=== PATIENT | female | born 1985 | race Caucasian/White ===

== ENCOUNTER 2021-07-13 10:33 | Emergency (ER) | payer MEDICARE, MEDICAID, SELFPAY ==
--- NOTE | ~2021-07-13 | US_ITS ---
EXAMINATION: US ABDOMEN LIMITED CLINICAL INFORMATION: Right upper quadrant pain. COMPARISON: None TECHNIQUE: Real-time imaging of the right upper quadrant abdominal viscera. FINDINGS: PANCREAS: Visualized portions are unremarkable. The tail obscured by overlying bowel gas. No peripancreatic inflammatory change. LIVER: Normal. The liver is normal in size. The liver contour is normal. Parenchymal echogenicity is normal. No focal hepatic lesion. There is no intrahepatic biliary duct dilatation seen. GALLBLADDER: There is tenderness to palpation overlying the gallbladder however no calculi, sludge, polyps are identified in gallbladder wall measures 3 mm in diameter. No fluid within the gallbladder wall. No pericholecystic fluid is seen. COMMON BILE DUCT: Normal in caliber measuring 0.3 cm in diameter. RIGHT KIDNEY: Normal. No hydronephrosis. No renal calculi or focal parenchymal lesions. The kidney measures 11.5 cm in maximum dimension. FREE FLUID: None. US/US abdomen limited IMPRESSION: No evidence of acute pancreatitis or acute cholecystitis.
--- NOTE | ~2021-07-13 | CT_ITS ---
EXAMINATION: CT ABDOMEN AND PELVIS WITHOUT CONTRAST CLINICAL INFORMATION: Flank pain. Rule out kidney stone. COMPARISON: Previous abdominal ultrasound from earlier the same day TECHNIQUE: Multidetector volumetric imaging was performed from the superior aspect of the liver through the pubic symphysis. Sagittal and coronal reformatted images were obtained on the technologist's workstation. This CT examination was performed using dose optimization techniques as appropriate, variously including the following: *Automated exposure control *Adjustment of mA and/or kV according to patient size (this includes techniques or standardized protocols for targeted exams where dose is matched to indication/reason for exam; i.e. extremities or head) *Use of iterative reconstruction technique DLP: 878 mGy-cm FINDINGS: LUNG BASES: The visualized lung bases are unremarkable. LIVER, GALLBLADDER, AND BILIARY TREE: The liver is normal in size, shape, and attenuation. No focal hepatic lesion or biliary ductal dilatation is present. The gallbladder is unremarkable with no evidence of radiopaque gallstones, gallbladder wall thickening, or obvious pericholecystic inflammatory changes. PANCREAS: Unremarkable. SPLEEN: Unremarkable. ADRENAL GLANDS: Unremarkable. KIDNEYS AND URETERS: The kidneys are normal in size, shape, and attenuation. No hydronephrosis, hydroureter, or calculi seen. No perinephric stranding. BLADDER: Not optimally distended and not well evaluated. GASTROINTESTINAL TRACT: The small and large bowel are unremarkable. The appendix is unremarkable. ABDOMINAL WALL: There is a small umbilical hernia containing fat and fluid. LYMPH NODES: Normal. VASCULAR: Unremarkable. PELVIC VISCERA: Unremarkable. OSSEOUS STRUCTURES: There are postsurgical changes at the L4-L5 and L5-S1 disc space levels. CT/CT abdomen pelvis wo con IMPRESSION: Normal-appearing kidneys. No stone seen. Small umbilical hernia containing fat and fluid. Postsurgical changes to the lower lumbar spine. Fleischner guidelines were followed.
[2021-07-13 10:49] VITALS: BP 148/95; PULSE 84; RESP 18; TEMP 37.2; O2SAT 96; BMI 38.2
[2021-07-13 11:12] LABS: MANUAL DIFF FLAG NO
[2021-07-13 11:14] LABS: Basophils Percent Auto 0.1 % (0-2); Eosinophils Absolute Auto 0.1 X10*3/uL (0.0-0.4); Eosinophils Percent Auto 0.9 % (0-4); Hematocrit 41.7 % (37.0-47.0); Hemoglobin 14.3 g/dl (12.0-16.0); Imm Gran Abs Auto 0.02 X10*3/uL (0.00-0.03); Imm Gran Pct Auto 0.3 % (0.0-0.4); Lymphocytes Absolute Auto 0.6 X10*3/uL (1.2-4.9); Lymphocytes Percent Auto 9.5 % (20-40); Mean Corpuscular HGB Conc 34.3 g/dl (31.0-35.0); Mean Corpuscular Hemoglobin 30.9 pg (27.0-33.0); Mean Corpuscular Volume 90.1 fL (80.0-98.0); Mean Platelet Volume 9.4 fL (9.4-12.3); Monocytes Absolute Auto 0.8 X10*3/uL (0.1-1.2); Monocytes Percent Auto 11.9 % (2-11); Neutrophils Absolute Auto 5.2 x10*3/uL (2.0-8.3); Neutrophils Percent Auto 77.3 % (45-73); Platelet Count 187 X10*3/uL (160-400); Red Blood Count 4.63 X10*6/uL (4.20-5.50); Red Cell Distribution Width 12.6 % (11.0-16.0); White Blood Count 6.7 X10*3/uL (4.8-10.8)
--- NOTE | 2021-07-13 11:23 | ED_ITS ---
HPI - Abdominal Pain General Chief Complaint: Abdominal Pain Stated Complaint: rt side flank pain Time Seen by Provider: 07/13/21 11:23 Source: patient Mode of arrival: ambulatory Limitations: no limitations History of Present Illness HPI narrative: This is a 36-year-old female no known medical history presenting to the emergency department with right upper quadrant pain x2 weeks at times radiating to her lower back. Patient tells me she had a similar episode like this back in the summer of last year, she tells me at that time it was a muscle strain. She tells me she has been having pain there ever since she turned very rapidly to look back at her children in the car. She tells me that the pain is better when she puts a pillow under her in a certain position. She does not know what makes the pain worse, other than palpation. She was seen at at an urgent care and advised to come get seen in emergency department to rule out cholecystitis. Denies chest pain, shortness of breath, fevers, chills, nausea, vomiting, weakness, headache, dizziness, vision changes, changes in bladder/bowel habits, urinary/bowel incontinence/retention, IVDA. MD elicited complaint: abdominal pain and flank pain Pertinent past history: none Onset (ago): week(s) (2) Pain Consistency: intermittent Location: RUQ Severity: severe Pain scale (0-10): 10 Quality: sharp Radiation: none Migration to: no migration Relieving factors: other (various positions such as pillow behind back ) Associated symptoms: denies other symptoms Related Data Previous Rx's Medication Instructions Recorded cyclobenzaprine 10 mg tablet 10 mg PO BEDTIME PRN #7 tab 07/13/21 Allergies Allergy/AdvReac Type Severity Reaction Status Date / Time acetaminophen [From VICODIN] Allergy Unknown HIVES Unverified 03/09/20 17:41 aspirin [ASPIRIN] Allergy Unknown UNKNOWN Unverified 03/09/20 17:41 From VICODIN Allergy Unknown HIVES Uncoded 03/09/20 17:41 From Tylenol-Codeine AdvReac Unknown SHAKING Uncoded 03/09/20 17:41 Review of Systems Review of Systems Constitutional : No Weight loss, No Fever, No Chills, No Fatigue, No Malaise ENT/Mouth : No sore throat, No Rhinorrhea Eyes: No Eye Pain, No Swelling, No Redness Cardiovascular : No Chest Pain, No SOB, No Dyspnea on Exertion, No Orthopnea, No Edema, No Palpitations Respiratory : No Cough, No Sputum, No Wheezing Gastrointestinal : No Nausea, No Vomiting, No Diarrhea, No Constipation, + abdominal Pain, No Hematochezia, No Melena Genitourinary : No Dysuria, No Urinary Frequency, No Hematuria, Musculoskeletal : No joint pain, No Myalgias, No Joint Swelling Skin : No Skin Lesions, No rash Neuro : No Weakness, No Numbness, No Dizziness, No Headache Psych : No Anxiety/Panic, No Depression All other systems reviewed and are negative Yes all other systems are reviewed and are negative Physical Exam Vital Signs: Vital Signs: Last Vital Signs Temp 99.0 F 07/13/21 10:49 Pulse 84 07/13/21 10:49 Resp 18 07/13/21 10:49 BP 148/95 H 07/13/21 10:49 Pulse Ox 96 07/13/21 10:49 BMI result Body Mass Index 38.2 VSS Appearance: Alert.? Oriented X3.? No acute distress.?Patient appears anxious. Head: Normocephalic, atraumatic, no step-offs or deformities Eyes: Pupils equal, round and reactive to light.? ENT: Pharynx normal.? Neck: Normal inspection.? Neck supple.? CVS: Normal heart rate and rhythm.? Pulses normal.? Respiratory: No respiratory distress.? Breath sounds normal.? Abdomen: Soft and + tenderness to RUQ.? Skin: Skin warm and dry.? Normal skin color.? Normal skin turgor.? Extremities: No lower extremity edema.? No calf ttp. 5/5 strength to bilateral upper and lower extremities Back: No midline tenderness, no C-spine tenderness, full range of motion, no CVA tenderness bilaterally Neuro: Oriented X 3.? No motor deficit.? No sensory deficit. Course Reevaluation(s) Reevaluation #1: US negative for pancreatitis, cholecystitis. Will obtain dry CT to r/o kidney stones. Time: 12:32 Reevaluation #2: UA clean. Patient noted to be COVID positive this appears to be an incidental finding. Patient has no complaints of upper respiratory symptoms. No chest pain, shortness of breath, fevers or chills. CT of the abdomen and pelvis is pending at this time. CT abdomen pelvis with a small umbilical hernia postsurgical state changes of the spine. No acute findings. At this time likely muscle strain. Will prescribe muscle relaxers and have her follow-up with her PCP. Time: 15:26 MDM - Abdominal Pain MDM Narrative Medical decision making narrative: [id number] 36 yo f presents to ED w/ complaints of RQU pain X2 weeks, had a similar episode about a year ago tells me it was a muscle tear then. PE- pain with palpation of RUQ. - Anish Wright Plan- labs, RUQ US, UA Medical Records Attestation: I reviewed the patient's medical records. Lab Data Attestation: I reviewed the patient's lab results. Result diagrams: 07/13/21 11:10 07/13/21 11:10 Labs: Lab Results 07/13/21 07/13/21 07/13/21 Range/Units 11:10 11:10 12:31 WBC 6.7 (4.8-10.8) X10*3/uL RBC 4.63 (4.20-5.50) X10*6/uL Hgb 14.3 (12.0-16.0) g/dl Hct 41.7 (37.0-47.0) % MCV 90.1 (80.0-98.0) fL MCH 30.9 (27.0-33.0) pg MCHC 34.3 (31.0-35.0) g/dl RDW 12.6 (11.0-16.0) % Plt Count 187 (160-400) X10*3/uL MPV 9.4 (9.4-12.3) fL Immature Gran % (Auto) 0.3 (0.0-0.4) % Neut % (Auto) 77.3 H (45-73) % Lymph % (Auto) 9.5 L (20-40) % [place] % (Auto) 11.9 H (2-11) % Eos % (Auto) 0.9 (0-4) % Baso % (Auto) 0.1 (0-2) % Lymph # (Auto) 0.6 L (1.2-4.9) X10*3/uL [place] # (Auto) 0.8 (0.1-1.2) X10*3/uL Eos # (Auto) 0.1 (0.0-0.4) X10*3/uL Baso # (Auto) 0.0 (0.0-0.2) X10*3/uL Abs Immat Gran (auto) 0.02 (0.00-0.03) X10*3/uL Absolute Neuts (auto) 5.2 (2.0-8.3) x10*3/uL Absolute Nucleated RBC 0.000 (0.0-0.012) X10*3/uL Nucleated RBC % (auto) 0.0 (0.0-0.2) /100WBC Sodium 137 (135-145) mmol/L Potassium 3.8 (3.3-5.1) mmol/L Chloride 110 H (96-108) mmol/L Carbon Dioxide 19 L (22-29) mmol/L Anion Gap 12 (12-20) BUN 8 L (9-16) mg/dL Creatinine 0.67 (0.5-1.4) mg/dL Estim Creat Clear Calc 137.8 Estimated GFR > 60 Random Glucose 101 (60-115) mg/dL Calcium 9.0 (8.4-10.2) mg/dL Total Bilirubin 0.9 (0.0-1.0) mg/dL Direct Bilirubin 0.4 (0.0-0.5) mg/dL AST 19 (5-31) U/L ALT 23 (0-31) U/L Alkaline Phosphatase 73 (39-117) U/L Total Protein 7.3 (6.5-8.0) g/dL Albumin 4.1 (3.5-5.0) g/dL Beta HCG, Quant < 2 mIU/mL Urine Color YELLOW Urine Appearance HAZY Urine pH 6.0 (5.0-8.0) Ur Specific [place] >= 1.030 H (1.005-1.025) Urine Protein NEG (NEG-TRACE) MG/DL Urine Glucose (UA) NEG (NEG) MG/DL Urine Ketones NEG (NEG) MG/DL Urine Blood NEG (NEG) Urine Nitrite NEG (NEG) Ur Leukocyte Esterase NEG (NEG) COVID-19 (ISRA) (Negative) COVID-19 Clin Com 07/13/21 Range/Units 12:38 WBC (4.8-10.8) X10*3/uL RBC (4.20-5.50) X10*6/uL Hgb (12.0-16.0) g/dl Hct (37.0-47.0) % MCV (80.0-98.0) fL MCH (27.0-33.0) pg MCHC (31.0-35.0) g/dl RDW (11.0-16.0) % Plt Count (160-400) X10*3/uL MPV (9.4-12.3) fL Immature Gran % (Auto) (0.0-0.4) % Neut % (Auto) (45-73) % Lymph % (Auto) (20-40) % [place] % (Auto) (2-11) % Eos % (Auto) (0-4) % Baso % (Auto) (0-2) % Lymph # (Auto) (1.2-4.9) X10*3/uL [place] # (Auto) (0.1-1.2) X10*3/uL Eos # (Auto) (0.0-0.4) X10*3/uL Baso # (Auto) (0.0-0.2) X10*3/uL Abs Immat Gran (auto) (0.00-0.03) X10*3/uL Absolute Neuts (auto) (2.0-8.3) x10*3/uL Absolute Nucleated RBC (0.0-0.012) X10*3/uL Nucleated RBC % (auto) (0.0-0.2) /100WBC Sodium (135-145) mmol/L Potassium (3.3-5.1) mmol/L Chloride (96-108) mmol/L Carbon Dioxide (22-29) mmol/L Anion Gap (12-20) BUN (9-16) mg/dL Creatinine (0.5-1.4) mg/dL Estim Creat Clear Calc Estimated GFR Random Glucose (60-115) mg/dL Calcium (8.4-10.2) mg/dL Total Bilirubin (0.0-1.0) mg/dL Direct Bilirubin (0.0-0.5) mg/dL AST (5-31) U/L ALT (0-31) U/L Alkaline Phosphatase (39-117) U/L Total Protein (6.5-8.0) g/dL Albumin (3.5-5.0) g/dL Beta HCG, Quant mIU/mL Urine Color Urine Appearance Urine pH (5.0-8.0) Ur Specific [place] (1.005-1.025) Urine Protein (NEG-TRACE) MG/DL Urine Glucose (UA) (NEG) MG/DL Urine Ketones (NEG) MG/DL Urine Blood (NEG) Urine Nitrite (NEG) Ur Leukocyte Esterase (NEG) COVID-19 (ISRA) Positive A (Negative) COVID-19 Clin Com See Note Imaging Data CT scan - abdomen: Attestation: I personally reviewed and interpreted this imaging study as follows: Radiologist's impression: CT/CT abdomen pelvis wo con IMPRESSION: Normal-appearing kidneys. No stone seen. Small umbilical hernia containing fat and fluid. Postsurgical changes to the lower lumbar spine.? ? Fleischner guidelines were followed. US - abdomen: Attestation: I personally reviewed and interpreted this imaging study as follows: Radiologist's impression: US/US abdomen limited IMPRESSION: No evidence of acute pancreatitis or acute cholecystitis. Critical Care Time Critical Care Time Critical Care Time: No Discharge Plan Discharge Clinical Impression: Chest wall muscle strain, COVID, Hernia, umbilical Patient Disposition: Home, Self-Care Instructions: Muscle Strain (ED), Chest Wall Pain (ED), COVID-19 (Coronavirus Disease 2019) (ED) Additional Instructions: Take your medications as prescribed. If you were prescribed antibiotics today, it is important that you take your medication to their entirety, do not skip any doses, do not finish them early. Today you tested positive for COVID-19. Take Ibuprofen or Tylenol as needed for fevers or body aches. Quarantine for 5 days and ensure you wear a mask. After 5 days you should wear a mask for 5 days after that. Practice social distancing and good hand hygiene. Drink plenty of fluids. Follow-up with your primary care provider this week. Return to the emergency department with new or worsening symptoms. In case of emergency call 911 You can purchase a pulse oximeter from your local pharmacy or grocery store, and monitor your oxygen saturation if it goes below 94% you should return to the emergency department for further evaluation. Your ultrasound showed no pancreatitis or cholecystitis. Your CT scan was also normal it just showed a small umbilical hernia. Prescriptions: New cyclobenzaprine 10 mg tablet 10 mg PO BEDTIME PRN (Reason: muscle spasm) Qty: 7 RF: 0 Referrals: Physician,Unknown J [Primary Care Provider] - 2 days Stand Alone Forms: Work/School Release [facility] Past Medical History Attestation statement: The following information was validated with the patient. Source: old records reviewed and nursing notes reviewed Medical History Back pain with history of spinal surgery Chronic lower back pain Surgical History H/O eye surgery Social History Social History Advance Directives: No Advance Directives Information Provided: Yes Patient : No
[2021-07-13 11:29] LABS: Alanine Aminotransferase 23 U/L (0-31); Albumin Level 4.1 g/dL (3.5-5.0); Alkaline Phosphatase 73 U/L (39-117); Anion Gap 12 (12-20); Aspartate Amino Transferase 19 U/L (5-31); Bilirubin Direct 0.4 mg/dL (0.0-0.5); Bilirubin Total 0.9 mg/dL (0.0-1.0); Blood Urea Nitrogen 8 mg/dL (9-16); Carbon Dioxide 19 mmol/L (22-29); Chloride 110 mmol/L (96-108); Creatinine Clr Calc Pharmacy 137.8; Estimated Glomerular Filt Rate > 60; Glucose Random 101 mg/dL (60-115); Potassium 3.8 mmol/L (3.3-5.1); Sodium 137 mmol/L (135-145); Total Protein 7.3 g/dL (6.5-8.0)
[2021-07-13 13:02] LABS: Appearance Urine HAZY; Color Urine YELLOW; Glucose Urine UA NEG (NEG); Leukocyte Esterase Urine NEG (NEG); Nitrite Urine NEG (NEG); Specific Gravity - Urine >= 1.030 (1.005-1.025); Urine Blood NEG (NEG); Urine Ketones NEG (NEG); Urine Protein NEG (NEG-TRACE)
[2021-07-13 13:08] LABS: COVID-19 Test Positive (Negative); IDNOW Serial# 55D5AD1C
[2021-07-13 14:47] LABS: HCG Quantitative < 2 mIU/mL
[2021-07-13 15:57] VITALS: BP 118/76; PULSE 70; RESP 16; TEMP 36.9; O2SAT 97
== END 2021-07-13 16:11 | disposition home or self-care (01) ==
PROVIDERS: Physician Assistant; Emergency Provider Emergency Medicine Emergency Medical Services
DX: U07.1 COVID-19 (principal); K42.9 Umbilical hernia without obstruction or gangrene; S29.011A Strain of muscle and tendon of front wall of thorax, initial encounter; X50.1XXA Overexertion from prolonged static or awkward postures, initial encounter; Y93.89 Activity, other specified; Y92.9 Unspecified place or not applicable; Y99.9 Unspecified external cause status
CPT/HCPCS: 36415; 74176; 76705; 80053; 81003; 82248; 84702; 85025; 87635; 99283; 99284

== ENCOUNTER 2024-09-08 09:51 | Outpatient (AMB) | payer MEDICARE, MEDICAID, SELFPAY ==
--- NOTE | 2024-09-08 10:09 | MHC.PC.OV ---
Vital Signs 09/08/24 10:16 Height 5 ft 4.29 in Weight 231 lb 6 oz BMI 39.4 BP 110/78 Blood Pressure Location Rt brachial Position Sitting Respiration 16 Pulse 69 Pulse Source Pulse Oximeter Pulse Oximetry (%) 95 Oxygen Delivery Method Room Air Intake Visit Reasons: New Appt New Patient requesitng an PE Intake Note: New patient visit Allergies acetaminophen [From VICODIN] Allergy (Unknown, Unverified 03/09/20 17:41) HIVES aspirin [ASPIRIN] Allergy (Unknown, Unverified 03/09/20 17:41) UNKNOWN From VICODIN Allergy (Unknown, Uncoded 03/09/20 17:41) HIVES From Tylenol-Codeine Adverse Reaction (Unknown, Uncoded 03/09/20 17:41) SHAKING Medication List - Last Reconciled 09/08/24 by Kira Shea PA-C albuterol sulfate 90 mcg/actuation 1 inh inhalation QID levothyroxine 50 mcg PO DAILY Tobacco use date assessed: 09/08/24 Dental Screening Dental Screen Date: 09/08/24 Did you have a dental visit in the last 12 months?: Yes Did you have a dental problem in the last 6 months where you did not have access to dental care?: No Was dental information given to patient?: Patient has dentist (Has dentures) HPI New Appt New Patient requesitng an PE HPI Details Patient is a 39-year-old female who presents today for a new patient visit. She was previously following [facility]. She has a significant past medical history of hypothyroidism and asthma. -She has concerns of an umbilical hernia. She states in 2021 it started to get worse and has gradually been worsening. She states that the point where she can not lift anything heavy without discomfort in the umbilical area. She states that the hernia has grown in size times it is tender to palpation. Derm: She reports that she keeps getting this read itchy, irritating rash underneath her skin in the suprapubic area. She states that it flares up when it is hot out. She reports it is sometimes that there is a foul odor and a little discharge. CV: Blood pressure today in the office is 110/78. Denies any chest pain, shortness on breath or palpitations. She is not on any antihypertensives or statins. Endo: She has a hx of hypothyroid and was on levothyroxine 50 mcg for years but off of it for a year. Psych: Wonder the questionnaires that she filled out today for the anxiety did come back positive. She says that she does not have any real anxiety but thinks it is related to not taking her thyroid medicine. Mammo: never had Pap: overdue, would like [place] Family history: maternal great grandmother had breast ca PFSH Medical History (Updated 09/08/24 @ 10:37 by Kira Shea PA-C) Skin tag of ear Back pain with history of spinal surgery Chronic lower back pain Surgical History (Updated 09/08/24 @ 10:22 by Naomie Gonsalez CMA) H/O section H/O spinal fusion H/O eye surgery Family History (Updated 09/08/24 @ 10:33 by Naomie Gonsalez CMA) Mother Thyroid disease Maternal Aunt Thyroid disease Social History Housing: Apartment Alcohol intake: former Patient Tobacco Use Status: Current everyday Tobacco user Cigarette Packs Per Day: 0.5 Years Smoked: 25 e-Cigarette/Vaping Use: Never Used Second Hand Smoke Exposure: No Substance Use Type: Marijuana service: No Current occupational status: disabled Cognitive needs: No Hearing needs: No Vision needs: Yes (blurry right eye since getting dog bite at age 10.) Questionnaire PHQ-9 Over the last 2 weeks, how often have you been bothered by any of the following problems? 1. Little interest or pleasure in doing things: not at all 2. Feeling down, depressed, or hopeless: not at all 3. Trouble falling or staying asleep, or sleeping too much: not at all 4. Feeling tired or having little energy: not at all 5. Poor appetite or overeating: not at all 6. Feeling bad about yourself - or that you are a failure or have let yourself or your family down: not at all 7. Trouble concentrating on things, such as reading the newspaper or watching television: not at all 8. Moving or speaking so slowly that other people could have noticed. Or the opposite - being so fidgety or restless that you have been moving around a lot more than usual: not at all 9. Thoughts that you would be better off or of hurting yourself in some way: not at all Total score: 0 Depression Screening Interpretation: Negative Depression Screening Done: Yes 23257 - PHQ-9 Billing: Yes Source: Developed by Drs. Jermaine Jade, Ghazal Sahni, Jaivd Marroquin and colleagues, with an educational lalo from [employer]. Thrive Questionnaire Date Thrive assessed: 09/08/24 I am a: Patient What is your living situation today?: I have a steady place to live Within the past 12 months, did the food you bought not last and you didn't have the money to get more?: Sometimes True Within the past 12 months, did you worry whether your food would run out before you got money to buy more?: Sometimes True Do you have trouble paying for medicines?: No Do you have trouble getting transportation to medical appointments?: No Do you have trouble paying your heating and electricity bill?: No Do you have trouble taking care of your child, family member or friend?: No Do you have trouble with day-to-day activities such as bathing, preparing meals, shopping, managing finances, etc.?: No Are you currently unemployed and looking for a job?: No Are you interested in more education?: No Please select the resources that you would like help with: None Currently or been in a relationship where the following occur: No concerns reported THRIVE Score: 2 AUDIT C Alcohol Use Questionnaire (AUDIT-C) 1. How often do you have a drink containing alcohol?: Never 3. How often do you have six or more drinks on one occasion?: Never Total Score: 0 RAJWINDER-7 AMB Questionnaire RAJWINDER-7 Date RAJWINDER - 7 assessed: 09/08/24 Feeling nervous, anxious, or on edge: 3 = Nearly every day Not being able to stop or control worryin = Not at all Worrying too much about different things: 0 = Not at all Trouble relaxin = Not at all Being so restless that it is hard to sit still: 0 = Not at all Becoming easily annoyed or irritable: 1 = Several days Feeling afraid as if something awful might happen: 1 = Several days Total RAJWINDER-7 score (0-4 normal; 5-9 mild; 10-14 moderate; 15-21 severe): 5 Source: Developed by Ghazal Gonzales. Bora, Javid Marroquin and colleagues, with an educational lalo from [employer]. RAJWINDER-7 Assessment Billing RAJWINDER-7 Assessment Tool: RAJWINDER-7 Assessment 40404 Physical exam (Primary Care) Vital Signs: Last Vital Signs Pulse 69 09/08/24 10:16 Resp 16 09/08/24 10:16 BP 110/78 09/08/24 10:16 Pulse Ox 95 09/08/24 10:16 Oxygen Delivery Method Room Air 09/08/24 10:16 BMI result Body Mass Index 39.4 Tobacco/Smoking Status: Tobacco use Status Tobacco use date assessed 09/08/24 09/08/24 10:23 Patient Tobacco Use Status Current everyday Tobacco 09/08/24 10:34 e-Cigarette/Vaping Use Never Used 09/08/24 10:23 PHQ-9: PHQ-9 Score PHQ-9: Total score 0 09/08/24 10:26 Depression Screening Interpretation: Negative Thrive Assessment: Date of Thrive Assessment Date Thrive assessed 09/08/24 09/08/24 10:34 Currently or been in a relationship where the following occur: No concerns reported Const Orientation/consciousness: patient oriented x3 HENMT Ears: hearing grossly normal bilaterally Neck Thyroid: Thyroid normal Lymphatic: no lymphadenopathy noted Resp Auscultation: clear to auscultation bilaterally Cardio Rate: regular rate Rhythm: regular rhythm Heart sounds: S1 normal heart sound present and S2 normal heart sound present GI Other: Umbilical hernia noted. It was reducible. Inspection: Yes normal to inspection Palpation (GI): Soft to palpation Auscultation: normoactive bowel sounds Rectal Exam - Female: deferred Skin Other: There is an erythematous blanching rash noted under the pannus in the suprapubic region. There are satellite lesions noted Neuro General: patient oriented x3, gait normal and no focal motor deficits Coding Level of Care Code New Pt Level 3 (94630) Complex EM visit Add On G2211 Diagnoses Hernia, umbilical K42.9 Candidiasis of skin B37.2 Obesity (BMI 30-39.9) E66.9 Additional Codes PHQ-9 - 16326 - PHQ-9 Billing: Yes ([id number]) RAJWINDER-7 Assessment Billing - RAJWINDER-7 Assessment Tool: RAJWINDER-7 Assessment 04530 ([id number]) Assessment & Plan Assessment & Plan (1) Hernia, umbilical: Code(s): K42.9 - Umbilical hernia without obstruction or gangrene Category: Medical Plan: Referral to General surgery. Abdominal exam today is benign and we did discuss warning signs of a hernia that would require emergent medical treatment including increased pain, fever, vomiting etc. (2) Candidiasis of skin: Code(s): B37.2 - Candidiasis of skin and nail Category: Medical Plan: We will treat with nystatin cream. Advised to keep skin clean and dry. Encouraged weight loss and limiting carbohydrate/sugar intake. (3) Obesity (BMI 30-39.9): Code(s): E66.9 - Obesity, unspecified Category: Medical Plan: We discussed diet and lifestyle modifications. Plan Labs ordered today. Mammogram ordered. Referral to OBGYN. Orders: Orders TSH reflex Free T4 Today B37.2 - Candidiasis of skin and nail, E66.9 - Obesity, unspecified, K42.9 - Umbilical hernia without obstruction or gangrene Lipid Panel Today B37.2 - Candidiasis of skin and nail, E66.9 - Obesity, unspecified, K42.9 - Umbilical hernia without obstruction or gangrene Vitamin B12 and Folate Today B37.2 - Candidiasis of skin and nail, E66.9 - Obesity, unspecified, K42.9 - Umbilical hernia without obstruction or gangrene MM screening mammo BI Today Z12.31 - Encounter for screening mammogram for malignant neoplasm of breast Complete Blood Count Auto Diff Today B37.2 - Candidiasis of skin and nail, E66.9 - Obesity, unspecified, K42.9 - Umbilical hernia without obstruction or gangrene Comprehensive [place]. Panel Fast Today B37.2 - Candidiasis of skin and nail, E66.9 - Obesity, unspecified, K42.9 - Umbilical hernia without obstruction or gangrene Hemoglobin A1c Today B37.2 - Candidiasis of skin and nail, E66.9 - Obesity, unspecified, K42.9 - Umbilical hernia without obstruction or gangrene, R73.01 - Impaired fasting glucose Referrals [facility] Referral Z01.419 - Encounter for gynecological examination (general) (routine) without abnormal findings General Surgery Referral K42.9 - Umbilical hernia without obstruction or gangrene Medications: New nystatin 1 appl topical TID 14 days 30 grams 2RF Discontinued cyclobenzaprine Discontinued Reason: Patient no longer taking 10 mg PO BEDTIME PRN 7 tabs 0RF muscle spasm
[2024-09-08 10:16] VITALS: BP 110/78; PULSE 69; RESP 16; O2SAT 95; BMI 39.4
== END 2024-09-08 10:42 | disposition home or self-care (01) ==
LOC: HO.HMCFM 09:52
PROVIDERS: PCP Physician Assistant; Visit Provider Physician Assistant
DX: K42.9 Umbilical hernia without obstruction or gangrene (principal); B37.2 Candidiasis of skin and nail; E66.9 Obesity, unspecified; Z68.39 Body mass index [BMI] 39.0-39.9, adult

== ENCOUNTER 2024-09-08 10:52 | Outpatient (REF) | payer MEDICARE, MEDICAID, SELFPAY ==
[2024-09-08 14:16] LABS: MANUAL DIFF FLAG NO
[2024-09-08 14:30] LABS: Basophils Percent Auto 0.1 % (0-2); Eosinophils Absolute Auto 0.2 X10*3/uL (0.0-0.4); Eosinophils Percent Auto 2.3 % (0-4); Hematocrit 43.8 % (37.0-47.0); Hemoglobin 14.6 g/dl (12.0-16.0); Imm Gran Abs Auto 0.02 X10*3/uL (0.00-0.03); Imm Gran Pct Auto 0.3 % (0.0-0.4); Lymphocytes Absolute Auto 2.8 X10*3/uL (1.2-4.9); Lymphocytes Percent Auto 37.8 % (20-40); Mean Corpuscular HGB Conc 33.3 g/dl (31.0-35.0); Mean Corpuscular Hemoglobin 30.7 pg (27.0-33.0); Mean Platelet Volume 10.5 fL (9.4-12.3); Monocytes Absolute Auto 0.5 X10*3/uL (0.1-1.2); Monocytes Percent Auto 6.3 % (2-11); Neutrophils Absolute Auto 3.9 x10*3/uL (2.0-8.3); Neutrophils Percent Auto 53.2 % (45-73); Platelet Count 281 X10*3/uL (160-400); Red Blood Count 4.76 X10*6/uL (4.20-5.50); Red Cell Distribution Width 13.2 % (11.0-16.0); White Blood Count 7.3 X10*3/uL (4.8-10.8)
[2024-09-08 14:35] LABS: Estimated Average Glucose 103 mg/dL; Hemoglobin A1c % 5.2 % (<6.0)
[2024-09-08 14:48] LABS: Alanine Aminotransferase 46 U/L (0-31); Alkaline Phosphatase 63 U/L (39-117); Anion Gap 9 (12-20); Aspartate Amino Transferase 34 U/L (5-31); Bilirubin Total 1.1 mg/dL (0.0-1.0); Blood Urea Nitrogen 9 mg/dL (9-16); Calcium 9.1 mg/dL (8.4-10.2); Carbon Dioxide 23 mmol/L (22-29); Chloride 112 mmol/L (96-108); Cholesterol 140 mg/dL (<200); Estimated Glomerular Filt Rate > 60; Glucose Fasting 93 mg/dL (60-99); HDL Cholesterol 34 mg/dL (>40); LDL Cholesterol Calculated 80 mg/dL (<100); Sodium 140 mmol/L (135-145); Total Protein 7.7 g/dL (6.5-8.0); Triglycerides 132 mg/dL (<150)
[2024-09-08 14:58] LABS: TSH reflex Free T4 3.08 uIU/mL (0.32-4.0)
[2024-09-08 15:14] LABS: Folate 9.8 ng/mL (> or = 4.0); Vitamin B12 636 pg/mL (200-900)
== END 2024-09-08 10:53 | disposition home or self-care (01) ==
LOC: HO.WFDLDS 10:52
PROVIDERS: Visit Provider Physician Assistant
DX: K42.9 Umbilical hernia without obstruction or gangrene (principal); B37.2 Candidiasis of skin and nail; E66.9 Obesity, unspecified; R73.01 Impaired fasting glucose
CPT/HCPCS: 36415; 80053; 80061; 82607; 82746; 83036; 84443; 85025; 96127; 99202

== ENCOUNTER 2024-09-30 10:16 | Outpatient (AMB) | payer MEDICARE, MEDICAID, SELFPAY ==
--- NOTE | 2024-09-30 10:18 | A.OFFPC_ITS ---
Vital Signs 09/30/24 10:19 Height 5 ft 5 in Weight 238 lb BMI 39.6 BP 110/74 Blood Pressure Location Rt brachial Position Right Lateral Intake Visit Reasons: CPE, lab review, etc - see comments Allergies acetaminophen [From VICODIN] Allergy (Unknown, Unverified 03/09/20 17:41) HIVES aspirin [ASPIRIN] Allergy (Unknown, Unverified 03/09/20 17:41) UNKNOWN From VICODIN Allergy (Unknown, Uncoded 03/09/20 17:41) HIVES From Tylenol-Codeine Adverse Reaction (Unknown, Uncoded 03/09/20 17:41) SHAKING Medication List - Last Reconciled 09/30/24 by Kira Shea PA-C albuterol sulfate 90 mcg/actuation 1 inh inhalation QID nystatin 1 appl topical TID 14 days triamcinolone acetonide 0.025% 1 appl topical BID 14 days Tobacco use date assessed: 09/08/24 Dental Screening Dental Screen Date: 09/08/24 HPI CPE, lab review, etc - see comments HPI Details Patient is a 39-year-old female who presents today for a cpe. She was previously following [employer]. She has a significant past medical history of hypothyroidism and asthma. GI: She has concerns of an umbilical hernia. She states in 2021 it started to get worse and has gradually been worsening. She states that the point where she can not lift anything heavy without discomfort in the umbilical area. She states that the hernia has grown in size times it is tender to palpation. She has an appointment with General surgery in October. Last labs did show slightly elevated LFTs. States that she does not drink alcohol. Derm: Her yeast infection improved with nystatin cream. Endo: Last TSH was WNL. Prefers not to restart the levothyroxine if she does not need it. She has been off of this for about a year and a half. Psych: Wonder the questionnaires that she filled out today for the anxiety did come back positive. She says that she does not have any real anxiety. Mammo: scheduled Pap: scheduled Family history: maternal great grandmother had breast ca [facility] Medical History (Updated 09/30/24 @ 10:28 by Kira Shea PA-C) Skin tag of ear Back pain with history of spinal surgery Chronic lower back pain Surgical History (Updated 09/08/24 @ 10:22 by Naomie Gonsalez CMA) H/O section H/O spinal fusion H/O eye surgery Family History (Updated 09/08/24 @ 10:33 by Naomie Gonsalez CMA) Mother Thyroid disease Maternal Aunt Thyroid disease Social History (Updated 09/08/24 @ 10:35 by Naomie Gonsalez CMA) Housing: Apartment Alcohol intake: former Patient Tobacco Use Status: Current everyday Tobacco user Cigarette Packs Per Day: 0.5 Years Smoked: 25 e-Cigarette/Vaping Use: Never Used Second Hand Smoke Exposure: No Substance Use Type: Marijuana service: No Current occupational status: disabled Cognitive needs: No Hearing needs: No Vision needs: Yes (blurry right eye since getting dog bite at age 10.) Questionnaire PHQ-9 Over the last 2 weeks, how often have you been bothered by any of the following problems? 1. Little interest or pleasure in doing things: not at all 2. Feeling down, depressed, or hopeless: not at all 3. Trouble falling or staying asleep, or sleeping too much: not at all 4. Feeling tired or having little energy: not at all 5. Poor appetite or overeating: not at all 6. Feeling bad about yourself - or that you are a failure or have let yourself or your family down: not at all 7. Trouble concentrating on things, such as reading the newspaper or watching television: not at all 8. Moving or speaking so slowly that other people could have noticed. Or the opposite - being so fidgety or restless that you have been moving around a lot more than usual: not at all 9. Thoughts that you would be better off or of hurting yourself in some way: not at all Total score: 0 Depression Screening Interpretation: Negative Depression Screening Done: Yes 64985 - PHQ-9 Billing: Yes Source: Developed by Drs. Jermaine Jade, Ghazal Sahni, Javid Marroquin and colleagues, with an educational lalo from [employer] Thrive Questionnaire Date Thrive assessed: 09/08/24 I am a: Patient What is your living situation today?: I have a steady place to live Within the past 12 months, did the food you bought not last and you didn't have the money to get more?: Sometimes True Within the past 12 months, did you worry whether your food would run out before you got money to buy more?: Sometimes True Do you have trouble paying for medicines?: No Do you have trouble getting transportation to medical appointments?: No Do you have trouble paying your heating and electricity bill?: No Do you have trouble taking care of your child, family member or friend?: No Do you have trouble with day-to-day activities such as bathing, preparing meals, shopping, managing finances, etc.?: No Are you currently unemployed and looking for a job?: No Are you interested in more education?: No Please select the resources that you would like help with: None Currently or been in a relationship where the following occur: No concerns reported THRIVE Score: 2 AUDIT C Alcohol Use Questionnaire (AUDIT-C) 3. How often do you have six or more drinks on one occasion?: Never Total Score: 0 Score Reviewed/Action Taken: Yes RAJWINDER-7 AMB Questionnaire RAJWINDER-7 Date RAJWINDER - 7 assessed: 09/08/24 Source: Developed by Drs. Jermaine Jade, Ghazal Sahni, Javid Marroquin and colleagues, with an educational lalo from [employer] Physical exam (Primary Care) Tobacco/Smoking Status: Tobacco use Status Tobacco use date assessed 09/08/24 09/08/24 10:23 Patient Tobacco Use Status Current everyday Tobacco 09/08/24 10:35 e-Cigarette/Vaping Use Never Used 09/08/24 10:35 Depression Screening Interpretation: Negative Thrive Assessment: Date of Thrive Assessment Date Thrive assessed 09/08/24 09/08/24 10:34 Currently or been in a relationship where the following occur: No concerns reported Const Orientation/consciousness: patient oriented x3 HENMT Ears: hearing grossly normal bilaterally and TM's normal bilaterally General nose exam: No nasal polyps present Face and sinus: Yes sinuses nontender Mouth: Normal oral and palatal mucosa present Eyes Pupils: Equal, round and reactive pupils present EOM: EOMs intact bilaterally Neck Neck: Yes full ROM and Yes no lymphadenopathy Thyroid: Thyroid normal Lymphatic: no lymphadenopathy noted Chest Chest palpation & inspection: normal inspection of the chest Resp Auscultation: clear to auscultation bilaterally Cardio Rate: regular rate Rhythm: regular rhythm Heart sounds: S1 normal heart sound present and S2 normal heart sound present Peripheral pulses: Peripheral pulses 2+ throughout GI Inspection: Yes normal to inspection Palpation (GI): Soft to palpation Auscultation: normal bowel sounds Rectal Exam - Female: deferred General: Yes no CVA tenderness Back/Spine/Pelvis Other: Nontender Back: no CVA tenderness Skin General skin exam: no rashes or lesions noted Neuro General: patient oriented x3, gait normal, CN's II-XI intact bilaterally and deep tendon reflexes 2+ bilaterally Cranial nerves: Yes Equal, round and reactive pupils present Motor exam (neuro): 5/5 motor strength present throughout Sensory Exam: double simultaneous stimulation for sensation normal Coordination: [id number] test normal and Romberg test negative Extrem General: Yes normal to inspection and Yes full ROM Psych Affect: normal affect Attitude: cooperative Thought process: Normal thought process present Thought content: Normal thought content present Insight: Good insight present (Psych) Judgement: Good judgement present (Psych) Coding Level of Care Code Est Pt Prev Care 40-64y(46112) Diagnoses Routine general medical examination at a health care facility Z00.00 Hernia, umbilical K42.9 Elevated LFTs R79.89 Additional Codes PHQ-9 - 28649 - PHQ-9 Billing: Yes ([id number]) Assessment & Plan Assessment & Plan (1) Routine general medical examination at a health care facility: Code(s): Z00.00 - Encounter for general adult medical examination without abnormal findings Plan: reviewed mammo booked 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
[2024-09-30 10:19] VITALS: BP 110/74; BMI 39.6
== END 2024-09-30 10:36 | disposition home or self-care (01) ==
LOC: HO.HMCFM 10:17
PROVIDERS: PCP Physician Assistant; Visit Provider Physician Assistant
DX: Z00.00 Encounter for general adult medical examination without abnormal findings (principal); K42.9 Umbilical hernia without obstruction or gangrene; R79.89 Other specified abnormal findings of blood chemistry

== ENCOUNTER → 2024-09-30 10:16 | Outpatient (BNVA) | payer MEDICARE, MEDICAID, SELFPAY | PROVIDERS: PCP Physician Assistant; Visit Provider Physician Assistant | DX: Z00.00 Encounter for general adult medical examination without abnormal findings (principal); E03.9 Hypothyroidism, unspecified; J45.909 Unspecified asthma, uncomplicated; K42.9 Umbilical hernia without obstruction or gangrene; R79.89 Other specified abnormal findings of blood chemistry | CPT/HCPCS: 96127; 99396 ==

== ENCOUNTER 2024-11-03 10:46 | Outpatient (REF) | payer MEDICARE, SELFPAY ==
--- NOTE | ~2024-11-03 | MM_ITS ---
EXAMINATION: MM SCREENING DIGITAL BREAST TOMOSYNTHESIS, BILATERAL CLINICAL INFORMATION: Screening. Asymptomatic. COMPARISON: Mammography: Comparison is made with available priors TECHNIQUE: Digital breast mammography with tomosynthesis is performed in both the craniocaudal and mediolateral oblique views along with computer-aided detection (CAD). FINDINGS: There are scattered areas of fibroglandular density (ACR BI-RADS breast composition Category b). There are no significant masses, abnormal calcifications, or other abnormalities. MM/MM tomosynthesis screening BI IMPRESSION: No mammographic evidence of malignancy. ASSESSMENT: BI-RADS BI-RADS 1 - Negative RECOMMENDATION: Routine annual mammography screening. 1 year F/U This examination should not preclude the clinical evaluation of a suspicious palpable abnormality. This patient's information was entered into a reminder system with a target due date for their next mammogram. Electronically signed by: Mary Adams DO 11/09/2024 05:59 PM EDT
== END 2024-11-03 10:47 | disposition home or self-care (01) ==
LOC: HO.MAMMO 10:46
PROVIDERS: PCP Physician Assistant; Visit Provider Physician Assistant
DX: Z12.31 Encounter for screening mammogram for malignant neoplasm of breast (principal)
CPT/HCPCS: 77062; 77063; 77066; 77067

== ENCOUNTER → 2024-11-03 11:15 | Outpatient (BNV) | payer MEDICARE, SELFPAY | PROVIDERS: PCP Physician Assistant; Visit Provider Internal Medicine | DX: Z12.31 Encounter for screening mammogram for malignant neoplasm of breast (principal) | CPT/HCPCS: 77063; 77067 ==

== ENCOUNTER 2024-11-04 09:38 | Outpatient (AMB) | payer MEDICARE, SELFPAY ==
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
[2024-11-04 09:52] VITALS: BP 112/72; BMI 39.6
--- OUTSIDE RECORDS SUMMARY | 2024-11-04 10:27 | XMS_ITS | Clinical Summary ---
Author Organization [facility] ity Address [address] [place] [address] Care Team Providers Care Manager Title Name Role Phone Blanca Burnett MD Primary Care Provider [phone] Allergies Active Allergy Reactions Criticality Noted Date Comments Aspirin 02/04/2014 Other Reaction(s): Hives/Urticaria And shakes Codeine 11/02/2009 tylenol #3 /hives and the shakes Food Allergy Formula 05/24/2009 APPLES Hydrocodone-Acetaminophen 11/02/2009 hives Other 05/24/2009 Seasonal Allergies TREE ALLERGIES Medications levothyroxine (SYNTHROID, LEVOTHROID) 50 mcg tablet Take 1 tablet (50 mcg total) by mouth 1 (one) time each day before breakfast. 12/04/2021 Active albuterol HFA (PROAIR HFA ; PROVENTIL HFA ; VENTOLIN HFA) 90 mcg/actuation inhaler Inhale 2 Puffs into the lungs every 6 hours as needed for Cough or Wheezing. 05/25/2021 Active cetirizine (ZyrTEC) 10 mg tablet TAKE 1 TAB BY MOUTH DAILY NEEDED FOR ALLERGIES. 12/14/2020 Active fluticasone HFA (Flovent HFA) 110 mcg/actuation inhaler Inhale 1 puff by mouth 2 (two) times a day. 10/16/2020 Active miscellaneous medical supply misc SPACER DEVICE-ADUL T for use with MDI 05/24/2009 Active Active Problems Problem Noted Date Diagnosed Date Chronic pain 06/05/2009 Overview (06/08/2024): Multiple ER visits for pain meds: [facility] 05/31; 07/01/09 c/o fall; 07/16/09. Was actually at [facility] 07/16/09 also, c/o broken tooth at that visit, ER notes concerns regarding drug-seeking behavior Abnormal vaginal Pap smear 05/24/2009 Overview (06/08/2024): Per patient; she has f/u Asthma 05/24/2009 Hypothyroidism 05/24/2009 Iron deficiency anemia 05/24/2009 Seasonal allergies 05/24/2009 Severe obesity (BMI 35.0-39. 9) with comorbidity (CMS/[facility] V24, [facility] V28) 05/24/2009 Tobacco use disorder 05/24/2009 Immunizations Name Administration Dates Next Due H1N1 Inj Preservative Free 05/24/2009 Pfizer SARS-CoV-2 COVID-19, mRNA, LNP-S, preservative free 11/16/2020 Pneumococcal polysaccharide 23 valent (Pneumovax 23) 2yo and older 02/04/2014 Tdap Tetanus diptheria acell ular pertussis (Boostrix; Adacel) 7yo and older 07/30/2021 Surgical History Surgery Date Site/Laterality Comments OTHER SURGICAL HISTORY 9-10yrs ago PROCEDURE: HISTORICAL EAR SURGERY; COMMENT: RIGHT EAR TAG OTHER SURGICAL HISTORY 10/01 PROCEDURE: [place] ARTHRODESIS POSTERIOR INTERBODY 1 NTRSPC LUMBAR; COMMENT: surgery performed by Dr Saab SECTION PROCEDURE: [place] DELIVERY ONLY; COMMENT: breech delivery CERVICAL BIOPSY W/ LOOP ELECTRODE EXCISION 01/04/2019 PROCEDURE: CERVIAL LEEP CONE BIOPSY [facility] PATHOLOGY EX; COMMENT: [facility] Medical History Medical History Date Comments Unspecified asthma(493.90) 05/24/2009 DX:Un specified asthma(493.90) Marijuana use DX:Marijuana use Family History Medical History Relation Name Comments Diabetes Aunt MATERNAL Breast cancer Maternal Grandmother Thyroid disease Mother Coronary artery disease Neg Hx Hypertension Neg Hx Other cancer Neg Hx Relation Name Status Comments Aunt Father Alive Maternal Grandmother Mother Alive Social History Tobacco Use Types Packs/Day Years Used Date Smoking Tobacco: Every Day Cigarettes Smokeless Tobacco: Never Alcohol Use Standard Drinks/Week Comments No 0 (1 standard drink = 0.6 oz pur e alcohol) Comments Unknown Sex and Gender Information Value Date Recorded Sex Assigned at Not on file Legal Sex Female 10:19 AM EST Gender Identity Not on file Sexual Orientation Not on file Obstetrics History Plan of Treatment Health Maintenance Due Date Last Done Comments Breast Cancer Screening 1984 Hepatitis B Vaccines (1 of 3 - 19+ 3-dose series) 2003 Pneumococcal Vaccine: Pediatrics (0 to 5 Years) and At-Risk Patients (6 to 64 Years) (2 of 2 - PCV) 02/04/2015 02/04/2014 Cervical Cancer Screening: P ap Smear 01/06/2017 01/06/2014 Depression Screening 06/01/2022 HIV Screening 06/01/2022 Hepatitis C Screening 06/01/2022 Social Influencers of Health Screening 06/01/2022 Cholesterol Screening (Lipid Panel) 01/06/2024 01/05/2019 COVID-19 Vaccine (3 - 2023-2 5 season) 2024 11/16/2020, 10/26/2020 Influenza Vaccine (Season Ended) 2025 05/24/2009 DTaP,Tdap,and Td Vaccines (2 - Td or Tdap) 07/30/2031 07/30/2021 HIB Vaccines Aged Out No longer eligi ble based on patient's age to complete this topic HPV Vaccines Aged Out No longer eligi ble based on patient's age to complete this topic Hepatitis A Vaccines Aged Out No long er eligible based on patient's age to complete this topic IPV Vaccines Aged Out No longer eligi ble based on patient's age to complete this topic MMR Vaccines Aged Out No longer eligi ble based on patient's age to complete this topic Meningococcal ACWY Vaccine Aged Out N o longer eligible based on patient's age to complete this topic Meningococcal B Vaccine Aged Out No l onger eligible based on patient's age to complete this topic RSV Immunization Patients Under 20 months Aged Out No longer eligible b ased on patient's age to complete this topic Varicella Vaccines Aged Out No longer eligible based on patient's age to complete this topic Procedures Procedure Name Priority Date/Time Associated Diagnosis Comments LIPID PANEL Routine 01/05/2019 HM PAP SMEAR Routine 01/06/2014 from Last 3 Months or Most Recently Relevant to Health Maintenance Results * (ABNORMAL) Lipid panel (01/05/2019) LDL/HDL Ratio 5(A) 0 - 4 Triglycerides 304(A) 0 - 150 mg/dL Cholesterol 146 0 - 200 mg/dL HDL 28(A) >=40 mg/dL LDL Cholesterol 58 0 - 100 mg/dL Blood Venous blood specimen / Unknown Historical Provider LAB BLOOD ORDERABLES Brittany l Result * Pap Smear (01/06/2014) Pap smear No Interpretation , Abstracted Historical Provider HEALTH MAINTENANCE Final Result from Last 3 Months or Most Recently Relevant to Health Maintenance Care Teams Manager Title Relationship Specialty Start Date End Date Blanca Burnett MD [address] [place] [id number] PCP - General Internal Medicine 05/25/21
== END 2024-11-04 13:18 | disposition home or self-care (01) ==
LOC: HO.HWSM 09:38
PROVIDERS: PCP Physician Assistant; Visit Provider Advanced Practice Midwife
DX: Z01.419 Encounter for gynecological examination (general) (routine) without abnormal findings (principal); E66.9 Obesity, unspecified
CPT/HCPCS: 99386; 99459

== ENCOUNTER 2024-11-04 09:38 | Outpatient (REF) | payer MEDICARE, SELFPAY ==
--- OUTSIDE RECORDS SUMMARY | 2024-11-04 13:37 | XMS_ITS | Clinical Summary ---
Author Organization [facility] ity Address [address] [place] [address] Care Team Providers Care Top Stop Attacher Name Role Phone Blanca Burnett MD Primary Care Provider [phone] Allergies Active Allergy Reactions Criticality Noted Date [...] Severe obesity (BMI 35.0-39. 9) with comorbidity (CMS/[facility] V24, [facility] V28) 05/24/2009 Tobacco use disorder 05/24/2009 Immunizations [...] EAR TAG OTHER SURGICAL HISTORY 10/01 PROCEDURE: [place] ARTHRODESIS POSTERIOR INTERBODY 1 NTRSPC LUMBAR; COMMENT: surgery performed by Dr Saab SECTION PROCEDURE: [place] DELIVERY ONLY; COMMENT: breech delivery CERVICAL BIOPSY [...] Recently Relevant to Health Maintenance Care Teams Top Stop Attacher Relationship Specialty Start Date End Date Blanca Burnett MD [address] [place] [id number] PCP - General Internal Medicine 05/25/21
[2024-11-05 09:42] LABS: Bacterial Vaginosis PCR NEGATIVE (Negative); Candida Group PCR NOT DETECTED (Not Detect); Candida glab krusei PCR NOT DETECTED (Not Detect); Trichomonas vaginalis PCR NOT DETECTED (Not Detect)
[2024-11-05 10:12] LABS: CT PCR NOT DETECTED (Not Detect.); NG PCR NOT DETECTED (Not Detect.)
[2024-11-10 15:22] LABS: HPV Genotype 16 Negative (Negative); HPV Genotype 18 Negative (Negative); HPV High Risk Negative (Negative)
== END 2024-11-04 09:39 | disposition home or self-care (01) ==
LOC: HO.LNP 09:38
PROVIDERS: PCP Physician Assistant; Visit Provider Advanced Practice Midwife
DX: Z01.419 Encounter for gynecological examination (general) (routine) without abnormal findings (principal); Z11.51 Encounter for screening for human papillomavirus (HPV); K42.9 Umbilical hernia without obstruction or gangrene; E66.9 Obesity, unspecified; Z68.39 Body mass index [BMI] 39.0-39.9, adult; R79.89 Other specified abnormal findings of blood chemistry; B37.2 Candidiasis of skin and nail; M54.9 Dorsalgia, unspecified; Z87.42 Personal history of other diseases of the female genital tract
CPT/HCPCS: 81515; 87491; 87591; 87626; 88175; 99386; 99459

== ENCOUNTER 2024-11-10 09:45 | Outpatient (REF) | payer MEDICARE, SELFPAY ==
--- NOTE | ~2024-11-10 | US_ITS ---
CLINICAL HISTORY: K42.9 - Umbilical hernia without obstruction or gangrene --- Additional Notes or Sp ecial Instructions: ELEVATED LIVER FUNCTION TESTS US abdomen complete with duplex and color Doppler Comparison: None Findings: The visualized pancreas, aorta, and inferior vena cava are unremarkable. Normal size liver with increased echotexture reflecting hepatic steatosis with area of focal fatty sparing near the gallbladder fossa. Right lobe 16.7 cm length. No focal hepatic masses. Common duct 3.0 mm diameter. Physiologic distention of the gallbladder. No gallstones or sludge. No gallbladder wall thickening. No pericholecystic fluid. No sonographic Torres sign. Main portal vein antegrade. Right kidney normal size, 10.8 cm in length. Normal cortical width and echotexture. No solid or cystic renal masses. No nephrolithiasis or hydronephrosis. Left kidney normal, 12.8 cm in length. Normal cortical width and echotexture. No solid or cystic renal masses. Probable vascular reflector midpole left kidney. Prominent column of Nino. Spleen measures 11.2 cm. No splenic masses. No ascites. No lymphadenopathy. Periumbilical hernia containing fat and fluid. The body of the hernia measuring 5.8 cm the neck of the hernia measuring 2.1 cm. This was demonstrated while the patient was sitting and with Valsalva. Impression: 1. Hepatic steatosis with focal fatty sparing. 2. Fat and fluid containing periumbilical hernia This document has been electronically signed by: Meir Warren MD on 11/11/2024 11:57:58
--- OUTSIDE RECORDS SUMMARY | 2024-11-10 11:02 | XMS_ITS | Clinical Summary ---
Author Organization [facility] ity Address [address] [place] [address] Care Team Providers Care Forder Operator Name Role Phone Blanca Burnett MD Primary Care Provider [phone] Allergies Active Allergy Reactions Criticality Noted Date [...] Severe obesity (BMI 35.0-39. 9) with comorbidity (CMS/[facility] V24, [facility] V28) 05/24/2009 Tobacco use disorder 05/24/2009 Immunizations [...] EAR TAG OTHER SURGICAL HISTORY 10/01 PROCEDURE: [place] ARTHRODESIS POSTERIOR INTERBODY 1 NTRSPC LUMBAR; COMMENT: surgery performed by Dr Saab SECTION PROCEDURE: [place] DELIVERY ONLY; COMMENT: breech delivery CERVICAL BIOPSY [...] Recently Relevant to Health Maintenance Care Teams Forder Operator Relationship Specialty Start Date End Date Blanca Burnett MD [address] [place] [id number] PCP - General Internal Medicine 05/25/21
== END 2024-11-10 09:46 | disposition home or self-care (01) ==
LOC: HO.US 09:45
PROVIDERS: PCP Physician Assistant; Visit Provider Physician Assistant
DX: K42.9 Umbilical hernia without obstruction or gangrene (principal); R79.89 Other specified abnormal findings of blood chemistry
CPT/HCPCS: 76700

== ENCOUNTER → 2024-11-10 09:46 | Outpatient (BNV) | payer MEDICARE, SELFPAY | PROVIDERS: PCP Physician Assistant; Visit Provider Radiology Diagnostic Radiology | DX: K76.0 Fatty (change of) liver, not elsewhere classified (principal); K42.9 Umbilical hernia without obstruction or gangrene | CPT/HCPCS: 76700 ==

== ENCOUNTER 2025-01-05 09:58 | Outpatient (AMB) | payer MEDICARE, MEDICAID, SELFPAY ==
--- NOTE | 2025-01-05 10:01 | MHC.PC.OV ---
Vital Signs 01/05/25 10:03 Height 5 ft 5 in Weight 231 lb 2 oz BMI 38.5 BP 112/82 Blood Pressure Location Rt brachial Respiration 16 Pulse 78 Pulse Source Pulse Oximeter Temp 99.1 F Temp Source Oral Pulse Oximetry (%) 97 Oxygen Delivery Method Room Air Intake Visit Reasons: labs Intake Note: Follow up lab results. Saw surgeon for hernia consults, but surgery hasnt been scheduled yet. Refill on all medicaitons. Sales Ledger Administrator Required: No Allergies acetaminophen (From VICODIN) Allergy (Unknown, Verified 01/05/25 10:02) HIVES aspirin (ASPIRIN) Allergy (Unknown, Verified 01/05/25 10:02) UNKNOWN From VICODIN Allergy (Unknown, Uncoded 01/05/25 10:02) HIVES From Tylenol-Codeine Adverse Reaction (Unknown, Uncoded 01/05/25 10:02) SHAKING Medication List - Last Reconciled 01/05/25 by Kira Shea PA-C albuterol sulfate 90 mcg/actuation 1 inh inhalation QID nystatin 1 appl topical TID 14 days triamcinolone acetonide 0.025% 1 appl topical BID 14 days Tobacco use date assessed: 01/05/25 Dental Screening Dental Screen Date: 09/08/24 HPI labs HPI Details Patient is a 39-year-old female who presents today for a f/u. . She has a significant past medical history of hypothyroidism, umbilical hernia and asthma. GI: She has concerns of an umbilical hernia. She states in 2021 it started to get worse and has gradually been worsening. She states that the point where she can not lift anything heavy without discomfort in the umbilical area. She states that the hernia has grown in size times it is tender to palpation. She followed with [facility] General surgery but states that it is taking way too long to have the surgery scheduled. This hernia is impacting her life. She states that she can not do a lot of physical activity because of it. Last labs did show slightly elevated LFTs. States that she does not drink alcohol. She has not yet repeated labs. Derm: Her yeast infection improved with nystatin cream. Endo: Last TSH was WNL. Prefers not to restart the levothyroxine if she does not need it. She has been off of this for about a year and a half. Mammo: Up-to-date Pap: Up-to-date Family history: maternal great grandmother had breast ca PFSH Medical History (Updated 01/05/25 @ 10:47 by Kira Shea PA-C) Skin tag of ear Back pain with history of spinal surgery Chronic lower back pain Surgical History (Updated 11/04/24 @ 11:03 by Clementine Esposito CNM) H/O section H/O spinal fusion H/O eye surgery Family History Mother Thyroid disease Maternal Aunt Thyroid disease Paternal Uncle Colon cancer Social History Housing: Apartment Alcohol intake: former Patient Tobacco Use Status: Current everyday Tobacco user Cigarette Packs Per Day: 0.5 Years Smoked: 25 e-Cigarette/Vaping Use: Never Used Second Hand Smoke Exposure: No Substance Use Type: Marijuana service: No Current occupational status: disabled Cognitive needs: No Hearing needs: No Vision needs: Yes (blurry right eye since getting dog bite at age 10.) Female Reproductive History Menstrual Age of Menarche: 7 Questionnaire Thrive Questionnaire Date Thrive assessed: 09/08/24 I am a: Patient What is your living situation today?: I have a steady place to live Within the past 12 months, did the food you bought not last and you didn't have the money to get more?: Sometimes True Within the past 12 months, did you worry whether your food would run out before you got money to buy more?: Sometimes True Do you have trouble paying for medicines?: No Do you have trouble getting transportation to medical appointments?: No Do you have trouble paying your heating and electricity bill?: No Do you have trouble taking care of your child, family member or friend?: No Do you have trouble with day-to-day activities such as bathing, preparing meals, shopping, managing finances, etc.?: No Are you currently unemployed and looking for a job?: No Are you interested in more education?: No Please select the resources that you would like help with: None Currently or been in a relationship where the following occur: No concerns reported THRIVE Score: 2 RAJWINDER-7 AMB Questionnaire RAJWINDER-7 Date RAJWINDER - 7 assessed: 09/08/24 Source: Developed by Drs. Jermaine Jade, Ghazal Sahni, Javid Marroquin and colleagues, with an educational lalo from [employer]. Physical exam (Primary Care) Vital Signs: Last Vital Signs Temp 99.1 F 01/05/25 10:03 Pulse 78 01/05/25 10:03 Resp 16 01/05/25 10:03 BP 112/82 01/05/25 10:03 Pulse Ox 97 01/05/25 10:03 Oxygen Delivery Method Room Air 01/05/25 10:03 BMI result Body Mass Index 38.5 Tobacco/Smoking Status: Tobacco use Status Tobacco use date assessed 01/05/25 01/05/25 10:09 Patient Tobacco Use Status Current everyday Tobacco 01/05/25 10:01 e-Cigarette/Vaping Use Never Used 01/05/25 10:01 Thrive Assessment: Date of Thrive Assessment Date Thrive assessed 09/08/24 01/05/25 10:01 Currently or been in a relationship where the following occur: No concerns reported Const Orientation/consciousness: patient oriented x3 HENMT Ears: hearing grossly normal bilaterally Neck Thyroid: Thyroid normal Lymphatic: no lymphadenopathy noted Resp Auscultation: clear to auscultation bilaterally Cardio Rate: regular rate Rhythm: regular rhythm Heart sounds: S1 normal heart sound present and S2 normal heart sound present GI Inspection: Yes normal to inspection Palpation (GI): Soft to palpation and Other GI palpation findings present (nontender, no cva tenderness) Auscultation: normoactive bowel sounds Rectal Exam - Female: deferred Skin General skin exam: no rashes or lesions noted Neuro General: patient oriented x3, gait normal and no focal motor deficits Coding Level of Care Code Est Pt Level 4 (03695) Complex EM visit Add On G2211 Diagnoses Hernia, umbilical K42.9 Dermatitis L30.9 Elevated LFTs R79.89 Assessment & Plan Assessment & Plan (1) Hernia, umbilical: Code(s): K42.9 - Umbilical hernia without obstruction or gangrene Category: Medical Plan: Referral to [facility] General surgery (2) Dermatitis: Code(s): L30.9 - Dermatitis, unspecified Category: Medical Plan: Has been using triamcinolone cream as needed. Referral to Dermatology. (3) Elevated LFTs: Code(s): R79.89 - Other specified abnormal findings of blood chemistry Category: Medical Plan: We will rechecked today. Reviewed abdominal ultrasound which did show fatty liver. Encouraged lifestyle modifications. Orders: Referrals General Surgery Referral K42.9 - Umbilical hernia without obstruction or gangrene Dermatology Referral L30.9 - Dermatitis, unspecified Medications: New albuterol sulfate 90 mcg/actuation 1 inh inhalation QID 8.5 grams 4RF Refilled nystatin 1 appl topical TID 30 grams 2RF 14 days triamcinolone acetonide 0.025% 1 appl topical BID 15 grams 1RF 14 days
[2025-01-05 10:03] VITALS: BP 112/82; PULSE 78; RESP 16; TEMP 37.3; O2SAT 97; BMI 38.5
--- OUTSIDE RECORDS SUMMARY | 2025-01-05 10:34 | XMS_ITS | Clinical Summary ---
Author Organization [facility] ity Address [address] [place] [address] Care Team Providers Care Labor Representative Name Role Phone Blanca Burnett MD Primary Care Provider [phone] Allergies Active Allergy Reactions Criticality Noted Date [...] obesity (BMI 35.0-39. 9) with comorbidity (CMS/[facility] V24, [facility] V28) 05/24/2009 Tobacco use disorder 05/24/2009 Immunizations [...] EAR TAG OTHER SURGICAL HISTORY 10/01 PROCEDURE: [place] ARTHRODESIS POSTERIOR INTERBODY 1 NTRSPC LUMBAR; COMMENT: surgery performed by Dr Saab SECTION PROCEDURE: [place] DELIVERY ONLY; COMMENT: breech delivery CERVICAL BIOPSY [...] 5 Years) and At-Risk Patients (6 to 49 Years) (2 of 2 - PCV) 02/04/2015 02/04/2014 Cervical Cancer Screening: P ap Smear 01/06/2017 01/06/2014 Depression Screening 06/01/2022 HIV Screening 06/01/2022 Hepatitis C Screening 06/01/2022 Social Influencers of Health Screening 06/01/2022 Cholesterol Screening (Lipid Panel) 01/06/2024 01/05/2019 COVID-19 Vaccine (3 - 2023-2 5 season) 2024 11/16/2020, 10/26/2020 Influenza Vaccine (#1) 2025 05/24/2009 DTaP,Tdap,and Td Vaccines (2 - [...] Recently Relevant to Health Maintenance Care Teams Labor Representative Relationship Specialty Start Date End Date Blanca Burnett MD [address] [place] [id number] PCP - General Internal Medicine 05/25/21
== END 2025-01-05 10:49 | disposition home or self-care (01) ==
LOC: HO.HMCFM 09:59
PROVIDERS: PCP Physician Assistant; Visit Provider Physician Assistant
DX: K42.9 Umbilical hernia without obstruction or gangrene (principal); L30.9 Dermatitis, unspecified; R79.89 Other specified abnormal findings of blood chemistry

== ENCOUNTER → 2025-01-05 09:58 | Outpatient (BNVA) | payer MEDICARE, MEDICAID, SELFPAY | PROVIDERS: PCP Physician Assistant; Visit Provider Physician Assistant | DX: K42.9 Umbilical hernia without obstruction or gangrene (principal); L30.9 Dermatitis, unspecified; R79.89 Other specified abnormal findings of blood chemistry | CPT/HCPCS: 99212 ==

== ENCOUNTER 2025-01-05 10:53 | Outpatient (REF) | payer MEDICARE, MEDICAID, SELFPAY ==
[2025-01-05 15:24] LABS: Alanine Aminotransferase 25 U/L (0-31); Albumin Level 4.2 g/dL (3.5-5.0); Alkaline Phosphatase 61 U/L (39-117); Aspartate Amino Transferase 28 U/L (5-31); Total Protein 6.7 g/dL (6.5-8.0)
== END 2025-01-05 10:54 | disposition home or self-care (01) ==
LOC: HO.WFDLDS 10:53
PROVIDERS: Visit Provider Physician Assistant
DX: R79.89 Other specified abnormal findings of blood chemistry (principal)
CPT/HCPCS: 36415; 80076

== ENCOUNTER 2025-02-16 14:35 | Outpatient (AMB) | payer MEDICARE, MEDICAID, SELFPAY ==
--- NOTE | 2025-02-16 14:39 | A.OFFVIS_ITS ---
Vital Signs 02/16/25 14:48 Height 5 ft 5 in Weight 231 lb BMI 38.4 BP 127/76 Blood Pressure Location Rt brachial Position Sitting Pulse 76 Intake Visit Reasons: Umbilical hernia Intake Note: Patient referred by pcp Kira Shea PA-C for evaluation and treatment of Umbilical hernia. Patient c/o: bothersome, enlarging, bulging out.Was scheduled for surgery at [facility] but was cancelled until May. Imaging: Abdomen US~ 11-10-2024 Addictions Recovery Specialist Required: No Accompanied by: Child Allergies acetaminophen (From VICODIN) Allergy (Unknown, Verified 02/16/25 14:47) HIVES aspirin (ASPIRIN) Allergy (Unknown, Verified 02/16/25 14:47) UNKNOWN From VICODIN Allergy (Unknown, Uncoded 02/16/25 14:47) HIVES From Tylenol-Codeine Adverse Reaction (Unknown, Uncoded 02/16/25 14:47) SHAKING Medication List - Last Reconciled 02/16/25 by Lavelle Canseco MD albuterol sulfate 90 mcg/actuation 1 inh inhalation QID nystatin 1 appl topical TID 14 days triamcinolone acetonide 0.025% 1 appl topical BID 14 days HPI HPI Umbilical hernia: Details: [age] year old female referred for an umbilical hernia. She has noticed this reducible mass on her umbilicus for about a year now. She describes significant discomfort especially when she coughs She was diagnosed to have an umbilical hernia and she was referred to me for surgery She says she does not have any significant medical problems but admits to smoking marijuana. She says she used to be buprenorphine for opiate abuse she says she has stopped this for many years. She denies GI complaints [facility] Medical History Skin tag of ear Back pain with history of spinal surgery Chronic lower back pain Surgical History H/O section H/O spinal fusion H/O eye surgery Family History Mother Thyroid disease Maternal Aunt Thyroid disease Paternal Uncle Colon cancer Social History Housing: Apartment Alcohol intake: former Patient Tobacco Use Status: Current everyday Tobacco user Cigarette Packs Per Day: 0.5 Years Smoked: 25 e-Cigarette/Vaping Use: Never Used Second Hand Smoke Exposure: No Substance Use Type: Marijuana service: No Current occupational status: disabled Cognitive needs: No Hearing needs: No Vision needs: Yes (blurry right eye since getting dog bite at age 10.) Female Reproductive History Menstrual Age of Menarche: 7 Review of Systems Const Denies chills and Denies fever(s) Card Denies chest pain, Denies dyspnea and Denies dyspnea on exertion Resp Denies cough, Denies dyspnea and Denies dyspnea on exertion GI Denies hematochezia and Denies change in bowel habits Denies hematuria Musc Denies back pain and Denies limited range of motion Neuro Denies focal weakness and Denies convulsions Psych Denies depression and Denies mood swings Physical Exam Vital Signs: Last Vital Signs Pulse 76 02/16/25 14:48 BP 127/76 02/16/25 14:48 BMI result Body Mass Index 38.4 Const Other: Morbidly obese General: comfortable and no acute distress Orientation/consciousness: patient oriented x3 Neck Neck: Yes no lymphadenopathy Resp Auscultation: clear to auscultation bilaterally Cardio Rhythm: regular rhythm GI Other: Umbilical hernia, reducible, about 1.5-2 cm Palpation (GI): Soft to palpation, nontender and no guarding Neuro General: patient oriented x3 Assessment & Plan Assessment & Plan (1) Hernia, umbilical: Code(s): K42.9 - Umbilical hernia without obstruction or gangrene Category: Medical Plan She has this reducible hernia on the umbilicus, about 1.5 cm. She wants this repaired because of discomfort. I explained to her the technique of repair of the umbilical hernia with possible mesh placement. I reviewed the risks including but not limited to bleeding, infections, bowel injury, recurrence, postop pain, as well as the benefits and alternatives. I explained to her what to expect postoperatively She understands and wants to proceed. Coding Level of Care Code New Pt Level 3 (12351) Diagnoses Hernia, umbilical K42.9
[2025-02-16 14:48] VITALS: BP 127/76; PULSE 76; BMI 38.4
--- OUTSIDE RECORDS SUMMARY | 2025-02-16 15:32 | XMS_ITS | Clinical Summary ---
Author Organization [facility] ity Address [address] [place] [address] Care Team Providers Care Roof Panel Hanger Name Role Phone Blanca Burnett MD Primary Care Provider [phone] Allergies Active Allergy Reactions Criticality Noted Date [...] Severe obesity (BMI 35.0-39. 9) with comorbidity (CMS/[facility] V24, [facility] V28) 05/24/2009 Tobacco use disorder 05/24/2009 Immunizations [...] EAR TAG OTHER SURGICAL HISTORY 10/01 PROCEDURE: [place] ARTHRODESIS POSTERIOR INTERBODY 1 NTRSPC LUMBAR; COMMENT: surgery performed by Dr Saab SECTION PROCEDURE: [place] DELIVERY ONLY; COMMENT: breech delivery CERVICAL BIOPSY [...] Cancer Screening: P ap Smear 01/06/2017 01/06/2014 HIV Screening 06/01/2022 Hepatitis C Screening 06/01/2022 Social Influencers of Health Screening 06/01/2022 Cholesterol Screening (Lipid Panel) 01/06/2024 01/05/2019 COVID-19 Vaccine (3 - 2023-2 5 season) 2024 11/16/2020, 10/26/2020 Depression Screening 06/23/2024 Influenza Vaccine (#1) 2025 05/24/2009 DTaP,Tdap,and Td [...] Recently Relevant to Health Maintenance Care Teams Roof Panel Hanger Relationship Specialty Start Date End Date Blanca Burnett MD [address] [place] [id number] PCP - General Internal Medicine 05/25/21
== END 2025-02-16 15:07 | disposition home or self-care (01) ==
LOC: HO.HGS 14:36
PROVIDERS: PCP Physician Assistant; Visit Provider Surgery
DX: K42.9 Umbilical hernia without obstruction or gangrene (principal)
CPT/HCPCS: 99203

== ENCOUNTER → 2025-02-16 14:35 | Outpatient (BNVA) | payer MEDICARE, MEDICAID, SELFPAY | PROVIDERS: PCP Physician Assistant; Visit Provider Surgery | DX: K42.9 Umbilical hernia without obstruction or gangrene (principal) | CPT/HCPCS: 99202 ==

== ENCOUNTER 2025-03-29 05:22 | Day surgery (SDC) | payer MEDICARE, MEDICAID, SELFPAY ==
--- OUTSIDE RECORDS SUMMARY | 2025-02-24 15:24 | XMS_ITS | Clinical Summary ---
Author Organization [facility] ity Address [address] [place] [address] Care Team Providers Care Multi Line Claims Adjuster Name Role Phone Blanca Burnett MD Primary Care Provider Allergies Active Allergy Reactions Criticality Noted Date [...] (BMI 35.0-39. 9) with comorbidity (CMS/[facility] V24, [facility] V28) 05/24/2009 Tobacco use disorder 05/24/2009 [...] EAR TAG OTHER SURGICAL HISTORY 10/01 PROCEDURE: [place] ARTHRODESIS POSTERIOR INTERBODY 1 NTRSPC LUMBAR; COMMENT: surgery performed by Dr Saab SECTION PROCEDURE: [place] DELIVERY ONLY; COMMENT: breech delivery CERVICAL BIOPSY W/ LOOP ELECTRODE EXCISION 01/04/2019 PROCEDURE: CERVIAL LEEP CONE BIOPSY [facility] PATHOLOGY EX; COMMENT: [facility] Medical History Medical History Date Comments [...] Recently Relevant to Health Maintenance Care Teams Multi Line Claims Adjuster Relationship Specialty Start Date End Date Blanca Burnett MD [address] [place] [address] PCP - General Internal Medicine 05/25/21
[2025-03-22 10:14] VITALS: BMI 38.4
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
[2025-03-29] VITALS (8 sets, daily range): BP systolic 106–147; BP diastolic 71–92; PULSE 59–75; RESP 11–18; TEMP 36.2–36.9; O2SAT 94–99; BMI 36.6
[2025-03-29] MEDS: Lactated Ringers 1,000 ML 100 ML IVCONT (06:10)
--- NOTE | 2025-03-29 07:12 | P.HPSUR_ITS ---
Pre-Procedural Eval Section A - 24 Hr Update-Section A only Date of Service: 03/29/25 Section B - Complete if H&P > 30 days Chief Complaint: Umbilical hernia without obstruction or gangrene Details of Present Illness: He has a hernia on the umbilicus, partially reducible Relevant Family History (Specify if Yes): No Relevant Social History: None Present Medications: see Short Stay Collaborative assessment Medical History: Significant History (Morbidly obese, chronic back pain) Allergies: Allergies Allergy/AdvReac Type Severity Reaction Status Date / Time aspirin (ASPIRIN) Allergy Intermediate Hives Verified 03/22/25 10:03 From VICODIN Allergy Intermediate HIVES Uncoded 03/22/25 10:03 From Tylenol-Codeine AdvReac Intermediate SHAKING Uncoded 03/22/25 10:03 Review of Systems Sugical H&P ROS: Negative: Constitution, Cardiovascular, Respiratory and G astrointestinal Exam Surgical H&P Exam: Normal: Heart and Normal: Lungs and Significant Findings: Abdomen (Umbilical hernia, about 2.5 cm) Plan Diagnosis/Plan: Unchanged I have reviewed the history and physical and performed a pertinent physical examination on my patient. No changes have occurred unless specified. Time Spent With Patient Time: Total time managing care of this patient today ____ minutes.
--- NOTE | 2025-03-29 08:20 | P.OP_ITS ---
Operative Note Operative Note Date of Service: 03/29/25 Narrative: Preop diagnosis: Umbilical hernia, partially reducible Postop diagnosis: Umbilical hernia, partially reducible with a fascial defect measuring 3 cm in diameter, extensive adhesions Procedure: Repair of umbilical hernia with medium-sized mesh, extensive lysis of adhesions Surgeon: Lavelle Canseco MD assistant production manager: DEV Rocha The patient is a 39 year old female with an umbilical hernia with pain and di scomfort as well as increased in size. She understood the technique of the planned procedure as well as the risks, benefits, and alternatives. She was brought to the operating room placed supine under general anesthesia via endotracheal tube. The abdomen was prepped and draped in the usual sterile fashion. A surgical time-out was done. The patient received cefazolin 2 g IV preoperatively I infiltrated the planned line of incision with lidocaine 1%. I made a short supraumbilical transverse curvilinear incision with a blade 15. This carried down with electrocautery through the full-thickness of the skin and subcutaneous fat. I dissected the umbilicus as a flap with Metzenbaum scissors and electrocautery and by doing so was able to visualize the hernia sac. I sharply dissected the hernia sac off of the subcutaneous layer. The patient was morbidly obese so we had to go through thick amount of subcutaneous fat. I continued sharp dissection to define the hernia sac as well as the fascial edges. There was note of a lot of adhesions tethering the hernia sac to the fascial edge so we had to excise the sac by carefully using electrocautery to separate this off of the fascial edge. This hernia sac was sent as a specimen I applied Chika clamps on the fascial edges. There were note of adherent omental fat surrounding the area and wide to do a lot of lysis of adhesions with electrocautery as well as Metzenbaum scissors. Some bleeding areas of the omentum were controlled with Polysorb 3-0 ligature ties as well as with electrocautery Once hemostasis was confirmed, I proceeded to inspect the underside of the fascial edge. There was note of good margins of adhesions Dr. Extensive lysis The fascial edge measured 3 cm in diameter. Shows a medium-sized Phasix umbili isela mesh. I flattened this under the fascia. I secured the Prolene straps to the fascia on both sides with Prolene 2-0 sutures I trimmed the Prolene straps flush on the fascial level. I closed the fascial defect with a [id number] Maxon 1 stitch Irrigation was done. The umbilicus was tacked down to the fascia with a Polysorb 3-0 stitch to re-create the dimple. The cutaneous layer and subdermal layer was reapposed with Polysorb 3-0 simple interrupted sutures. Skin closure was achieved with Polysorb 4-0 subcuticular running stitch. The area was infiltrated with Marcaine 0.5% for postop analgesia. Dressings were applied. The procedure was completed. The patient tolerated the procedure well. There were no immediate complications. Initial and final counts of sponges and instruments were correct. Estimated blood loss was about 25 cc The patient was extubated without difficulty. The patient was transferred to the recovery room with stable vital signs.
== END 2025-03-29 10:38 | disposition home or self-care (01) ==
PROVIDERS: PCP Physician Assistant; Visit Provider Surgery
PROC: (CPT 49593; principal; 2025-03-29 07:30)
DX: K42.9 Umbilical hernia without obstruction or gangrene (principal); E66.01 Morbid (severe) obesity due to excess calories; Z68.38 Body mass index [BMI] 38.0-38.9, adult; Z88.5 Allergy status to narcotic agent; Z88.6 Allergy status to analgesic agent
CPT/HCPCS: 49593; 88302; C1781; J0665; J0690; J1100; J1171; J1885; J2003; J2250; J2405; J2704; J2795; J3010

== ENCOUNTER → 2025-03-29 05:22 | Outpatient (BNV) | payer MEDICARE, MEDICAID, SELFPAY | PROVIDERS: PCP Physician Assistant; Visit Provider Surgery | DX: K42.9 Umbilical hernia without obstruction or gangrene (principal) | CPT/HCPCS: 49593 ==

== ENCOUNTER 2025-04-13 13:07 | Outpatient (AMB) | payer MEDICARE, MEDICAID, SELFPAY ==
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
[2025-04-13 13:16] VITALS: BP 125/87; PULSE 79; BMI 36.4
--- OUTSIDE RECORDS SUMMARY | 2025-04-13 18:24 | XMS_ITS | Clinical Summary ---
Author Organization [facility] ity Address [address] [place] [address] Care Team Providers Care Care Services Manager Name Role Phone Blanca Burnett MD Primary Care Provider [phone] Allergies Active Allergy Reactions Criticality Noted Date [...] (BMI 35.0-39. 9) with comorbidity (CMS/[facility] V24, [facility] V28) 05/24/2009 Tobacco use disorder 05/24/2009 Immunizations Immunization Administration Dates Next Due H1N1 Inj Preservative Free 05/24/2009 Pfizer SARS-CoV-2 COVID-19, mRNA, LNP-S, preservative free 11/16/2020 Pneumococcal polysaccharide 23 valent (Pneumovax 23) 2yo and older 02/04/2014 Tdap Tetanus diptheria acell ular pertussis (Boostrix; Adacel) 7yo and older 07/30/2021 Surgical History Surgery Date Site/Laterality Comments OTHER SURGICAL HISTORY 9-10yrs ago PROCEDURE: HISTORICAL EAR SURGERY; COMMENT: RIGHT EAR TAG OTHER SURGICAL HISTORY 10/01 PROCEDURE: SC ARTHRODESIS POSTERIOR INTERBODY 1 NTRSPC LUMBAR; COMMENT: surgery performed by Dr Saab SECTION PROCEDURE: [place] DELIVERY ONLY; COMMENT: breech delivery CERVICAL BIOPSY [...] of 3 - 19+ 3-dose series) 2003 HPV Vaccines (1 - 3-dose SCD M series) 2011 Pneumococcal Vaccine: Pediatrics (0 to 5 Years) and At-Risk Patients (6 to 49 Years) (2 of 2 - PCV) 02/04/2015 02/04/2014 Cervical Cancer Screening: P ap Smear 01/06/2017 01/06/2014 HIV Screening 06/01/2022 Hepatitis C Screening 06/01/2022 Social Influencers of Health Screening 06/01/2022 Cholesterol Screening (Lipid Panel) 01/06/2024 01/05/2019 Depression Screening 06/23/2024 COVID-19 Vaccine (3 - 2024-2 6 season) 2025 11/16/2020, 10/26/2020 Influenza Vaccine (#1) 2025 05/24/2009 DTaP,Tdap,and Td Vaccines (2 - Td or Tdap) 07/30/2031 07/30/2021 RSV Immunization Adult Patients (1 - 1-dose 75+ series) 2059 HIB Vaccines Aged Out No longer eligi [...] Recently Relevant to Health Maintenance Care Teams Care Services Manager Relationship Specialty Start Date End Date Blanca Burnett MD [address] [place] [phone] PCP - General Internal Medicine 05/25/21
== END 2025-04-13 13:27 | disposition home or self-care (01) ==
LOC: HO.HGS 13:07
PROVIDERS: PCP Physician Assistant
DX: Z09 Encounter for follow-up examination after completed treatment for conditions other than malignant neoplasm (principal)
CPT/HCPCS: 99213

== ENCOUNTER → 2025-04-13 13:07 | Outpatient (BNVA) | payer MEDICARE, MEDICAID, SELFPAY | PROVIDERS: PCP Physician Assistant | DX: Z48.815 Encounter for surgical aftercare following surgery on the digestive system (principal); Z87.19 Personal history of other diseases of the digestive system | CPT/HCPCS: 99212 ==